=== PATIENT | female | born 1985 | race Caucasian/White ===

== ENCOUNTER 2021-11-30 09:23 | Outpatient (CLI) | payer OTHER | END 2021-11-30 09:39 | disposition home or self-care (01) | LOC: SONOGRAMA 09:23 | PROVIDERS: ATTEND Obstetrics & Gynecology Reproductive Endocrinology | DX: N88.8 Other specified noninflammatory disorders of cervix uteri (principal); N94.6 Dysmenorrhea, unspecified ==